=== PATIENT | female | born 1955 ===

== ENCOUNTER 2017-05-12 07:53 | Day surgery (SDC) | payer OTHER ==
[2017-05-12] MEDS ORDERED: Lactated Ringer's 500 ML IV ONE (08:22)
[2017-05-12 08:43] VITALS: BMI 34.8
[2017-05-12] MEDS ORDERED: Propofol 10 mg/ml Inj (20 ML) ONE (10:11)
[2017-05-12] MEDS ORDERED: Lidocaine 2% MPF (5 ml) Inj ONE (10:12)
[2017-05-12 10:43] VITALS: TEMP 97; O2SAT 99
[2017-05-12 11:00] VITALS: BP 120/68; PULSE 70; RESP 15
== END 2017-05-12 12:01 | disposition home or self-care (01) ==
LOC: H.ENDO 07:53
PROVIDERS: ATTEND Internal Medicine Gastroenterology
DX: Z12.11 Encounter for screening for malignant neoplasm of colon (principal); E11.9 Type 2 diabetes mellitus without complications; E78.5 Hyperlipidemia, unspecified; N39.0 Urinary tract infection, site not specified; I10 Essential (primary) hypertension; D12.6 Benign neoplasm of colon, unspecified; K64.8 Other hemorrhoids; K57.30 Diverticulosis of large intestine without perforation or abscess without bleeding
CPT/HCPCS: 45384; 82948; 88305; J2704; J7120